=== PATIENT | female | born 1960 | race Caucasian/White ===

== ENCOUNTER 2017-05-21 05:48 | Emergency (ER) | payer BC ==
[2017-05-21] MEDS ORDERED: SODIUM CHLORIDE 1,000 ML IV STA (05:56)
--- NOTE | 2017-05-21 05:56 | PDOC ---
History of Present Illness - General Chief Complaint: Pain Stated Complaint: ABDOMINAL PAIN Time Seen by Provider: 05/21/17 05:55 History Source: Patient Exam Limitations: No Limitations - History of Present Illness Travel History: No Initial Comments: 05/21/17 06:10 56-year-old female with no medical history presents to the emergency department complaining of initial 8/10 dull nonradiating intermittent epigastric discomfort 2 hours on a gradual onset while she was sleeping. Patient had one episode of vomiting: Nonbilious/nonbloody and felt better. The pain is now described as 3/10 dull nonradiating intermittent epigastric discomfort. Patient denies any fever, chills, headache, neck painsstiffness, chest pain, shortness of breath, flank pains, urinary symptoms. Last meal: 2100 hrs. Timing/Duration: reports: intermittent Abdominal Pain Onset Location: reports: epigastric Past History - Past Medical History Allergies/Adverse Reactions: Allergies Allergy/AdvReac Type Severity Reaction Status Date / Time iodine Allergy Severe FAINTING Verified 05/21/17 05:51 SHELLFISH Allergy Intermediate Nausea AND Uncoded 05/21/17 05:51 VOMITING Home Medications: Ambulatory Orders Fluoxetine HCl [Prozac] 10 mg PO DAILY 03/21/13 Anemia: No Asthma: No Cancer: No Cardiac Disorders: No CVA: No COPD: No CHF: No Dementia: No Diabetes: No GI Disorders: No Disorders: No HTN: No Hypercholesterolemia: No Liver Disease: No Seizures: No Thyroid Disease: No - Surgical History Abdominal Surgery: Yes Appendectomy: No Cardiac Surgery: No Cholecystectomy: No Lung Surgery: No Neurologic Surgery: No Orthopedic Surgery: No - Suicide/Smoking/Psychosocial Hx Smoking History: Never smoked Have you smoked in the past 12 months: No Hx Alcohol Use: Yes (RARE) Drug/Substance Use Hx: No Substance Use Type: Alcohol Hx Substance Use Treatment: No Review of Systems - Review of Systems Able to Perform ROS?: Yes Comments:: 05/21/17 06:11 CONSTITUTIONAL: Absent: fever, chills, diaphoresis, generalized weakness, malaise, loss of appetite HEENT: Absent: rhinorrhea, nasal congestion, throat pain, throat swelling, difficulty swallowing, mouth swelling, ear pain, eye pain, visual Changes CARDIOVASCULAR: Absent: chest pain, loss of consciousness, palpitations, irregular heart rate, peripheral edema RESPIRATORY: Absent: cough, shortness of breath, dyspnea with exertion, orthopnea, wheezing, stridor, hemoptysis GASTROINTESTINAL: +epigastric pain Absent: abdominal distension, nausea, vomiting, diarrhea, constipation, melena, hematochezia GENITOURINARY: Absent: dysuria, frequency, urgency, hesitancy, hematuria, flank pain, genital pain MUSCULOSKELETAL: Absent: myalgia, arthralgia, joint swelling SKIN: Absent: rash, itching, pallor HEMATOLOGIC/IMMUNOLOGIC: Absent: easy bleeding, easy bruising, lymphadenopathy, frequent infections ENDOCRINE: Absent: unexplained weight gain, unexplained weight loss, heat intolerance, cold intolerance NEUROLOGIC: Absent: headache, focal weakness or paresthesias, dizziness, unsteady gait, seizure, mental status changes, bladder or bowel incontinence PSYCHIATRIC: Absent: anxiety, depression, suicidal or homicidal ideation, hallucinations. Is the patient limited Croatian proficient: No *Physical Exam - Physical Exam Comments: 05/21/17 06:12 GENERAL: Well developed, well nourished. Awake and alert. No acute distress. HEENT: Normocephalic, atraumatic. PERRLA, EOMI. No conjunctival pallor. Sclera are non- icteric. Moist mucous membranes. Oropharynx is clear. NECK: Supple. Full ROM. No JVD. Carotid pulses 2+ and symmetric, without bruits. No thyromegaly. No lymphadenopathy. CARDIOVASCULAR: Regular rate and rhythm. No murmurs, rubs, or gallops. Distal pulses are 2+ and symmetric. PULMONARY: No evidence of respiratory distress. Lungs clear to auscultation bilaterally. No wheezing, rales or rhonchi. ABDOMINAL: Soft. Non-tender. Non-distended. No rebound or guarding. No organomegaly. Normoactive bowel sounds. MUSCULOSKELETAL Normal range of motion at all joints. No bony deformities or tenderness. No CVA tenderness. EXTREMITIES: No cyanosis. No clubbing. No edema. No calf tenderness. SKIN: Warm and dry. Normal capillary refill. No rashes. No jaundice. NEUROLOGICAL: Alert, awake, appropriate. Cranial nerves 2-12 intact. No deficits to light touch and temperature in face, upper extremities and lower extremities. No motor deficits in the in face, upper extremities and lower extremities. Normoreflexic in the upper and lower extremities. Normal speech. Toes are down- going bilaterally. Gait is normal without ataxia. PSYCHIATRIC: Cooperative. Good eye contact. Appropriate mood and affect. ED Treatment Course - LABORATORY CBC & Chemistry Diagram: 05/21/17 05:54 05/21/17 05:54 Progress Note - Progress Note Progress Note: 0654hrs: Pt feels better and wishes to go home. Patient states she would've never came to the emergency department if she felt how she feels now. *DC/Admit/Observation/Transfer Diagnosis at time of Disposition: Gastroenteritis - Discharge Dispostion Disposition: HOME Condition at time of disposition: Stable Admit: No - Referrals Referrals: Pb Betts MD [Primary Care Provider] - Giselle Christensen MD [Staff Physician] - - Patient Instructions Printed Discharge Instructions: DI for Viral Gastroenteritis -- Adult Additional Instructions: Clear diet with slow transition to solid food Follow up with your physician and the [employer] Cooler Operator listed on your discharge. Return to the ER for severe/persistent/worsening symptoms
[2017-05-21 05:59] VITALS: BP 98/66; PULSE 72; TEMP 97.3; BMI 22.3
[2017-05-21 06:05] LABS: BASOPHIL 0.7 % (0-2.0); MCH 28.2 pg (25.7-33.7); MCHC 33.6 g/dl (32.0-36.0); MEAN PLT VOLUME 7.5 fl (7.5-11.1); NEUTROPHILS 58.6 % (42.8-82.8); PLATELET COUNT 273 K/MM3 (134-434); RDW 13.6 % (11.6-15.6); WHITE BLOOD COUNT 6.7 K/mm3 (4.0-10.0)
[2017-05-21] MEDS ORDERED: MAG HYDROX/AL HYDROX/SIMETH 30 ML UNIT-DOSE CUP PO ONE (06:09)
[2017-05-21] MEDS ORDERED: FAMOTIDINE 20 MG/50 ML IVPB 50 ML IVPB ONE ×2 (06:09→06:34)
[2017-05-21 06:12] LABS: URINE APPEARANCE SLCLOUDY; URINE BILIRUBIN NEGATIVE (NEGATIVE); URINE BLOOD NEGATIVE (NEGATIVE); URINE COLOR DKYELLOW; URINE GLUCOSE (UA) NEGATIVE (NEGATIVE); URINE KETONE TRACE (NEGATIVE); URINE NITRITE NEGATIVE (NEGATIVE); URINE PROTEIN NEGATIVE (NEGATIVE); URINE UROBILINOGEN NEGATIVE mg/dL (0.2-1.0)
[2017-05-21 06:26] LABS: ALBUMIN 3.6 g/dl (3.4-5.0); ALK PHOS 74 U/L (45-117); AMYLASE 69 U/L (25-115); ANION GAP 9 (8-16); BILIRUBIN,TOTAL 0.3 mg/dL (0.2-1.0); CALCIUM 9.1 mg/dL (8.5-10.1); CO2 24 mmol/L (21-32); GLUCOSE,RANDOM 174 mg/dL (74-106); SGOT/AST 21 U/L (15-37); SGPT/ALT 23 U/L (12-78); TOT PROT 6.5 g/dl (6.4-8.2)
[2017-05-21] MEDS ORDERED: MAG HYDROX/AL HYDROX/SIMETH 30 ML UNIT-DOSE CUP ONE (06:34)
[2017-05-21 10:40] LABS: URINE LEUK ESTERASE Negative (NEGATIVE)
== END 2017-05-21 07:29 | disposition home or self-care (01) ==
LOC: JER 05:48
PROC: 3E033GC Introduction of Other Therapeutic Substance into Peripheral Vein, Percutaneous Approach (ICD-10-PCS; principal; 2017-05-21)
PROC: 3E0337Z Introduction of Electrolytic and Water Balance Substance into Peripheral Vein, Percutaneous Approach (ICD-10-PCS; 2017-05-21)
DX: K52.9 Noninfective gastroenteritis and colitis, unspecified (principal)
CPT/HCPCS: 36415; 80053; 81003; 82150; 83690; 85025; 99282-25

== ENCOUNTER 2017-06-05 15:05 | Inpatient (IN) | payer SELFPAY ==
[2017-06-05] MEDS ORDERED: MAG HYDROX/AL HYDROX/SIMETH 30 ML UNIT-DOSE CUP PO ONE (16:15)
[2017-06-05] MEDS ORDERED: SODIUM CHLORIDE 1,000 ML IV STA (16:15)
[2017-06-05] MEDS ORDERED: PANTOPRAZOLE SODIUM 40 MG in SODIUM CHLORIDE 100 ML IVPB ONE (16:15)
[2017-06-05] MEDS ORDERED: MAG HYDROX/AL HYDROX/SIMETH 30 ML UNIT-DOSE CUP ONE (16:50)
[2017-06-05] MEDS ORDERED: PANTOPRAZOLE SODIUM 100 ML IVPB ONE (16:50)
[2017-06-05 17:01] LABS: BASOPHIL 0.3 % (0-2.0); EOSINOPHIL 0.1 % (0-4.5); MCH 28.4 pg (25.7-33.7); MCHC 33.7 g/dl (32.0-36.0); MEAN CELL VOLUME 84.3 fl (80-96); MEAN PLT VOLUME 7.6 fl (7.5-11.1); PLATELET COUNT 290 K/MM3 (134-434); RDW 13.3 % (11.6-15.6); WHITE BLOOD COUNT 10.6 K/mm3 (4.0-10.0)
--- NOTE | 2017-06-05 17:08 | PDOC ---
History of Present Illness <Tonya Berger - Last Filed: 06/05/17 18:52> - History of Present Illness Initial Comments: 06/05/17 17:03 "56 y/o F with a PMHx of anxiety presents to the ED with epigastric pain today. She reports the pain is a constant, dull pain and rates it an 8/10. There is no association with food. She reports associated nausea earlier but no vomiting, no diarrhea. Patient was seen in ED about two weeks ago with similar symptoms. She had normal blood tests and resolution of her pain with GI cocktail. She has a GI appointment tomorrow at [facility]. Denies vomiting, diarrhea. Denies fever, chills. Denies chest pain, SOB. " <Gabe Parrish - Last Filed: 06/05/17 20:02> - General Chief Complaint: Pain, Acute Stated Complaint: ABD PAIN Time Seen by Provider: 06/05/17 15:46 Past History <Tonya Berger - Last Filed: 06/05/17 18:52> - Past Medical History Anemia: No Asthma: No Cancer: No Cardiac Disorders: No CVA: No COPD: No CHF: No Dementia: No Diabetes: No GI Disorders: No Disorders: No HTN: No Hypercholesterolemia: No Liver Disease: No Psychiatric Problems: Yes (depression/anxiety) Seizures: No Thyroid Disease: No - Surgical History Abdominal Surgery: Yes (cysrt removed from ovary) Appendectomy: No Cardiac Surgery: No Cholecystectomy: No Lung Surgery: No Neurologic Surgery: No Orthopedic Surgery: No - Suicide/Smoking/Psychosocial Hx Smoking History: Never smoked Have you smoked in the past 12 months: No Hx Alcohol Use: Yes (occasionally) Drug/Substance Use Hx: No Substance Use Type: Alcohol Hx Substance Use Treatment: No <Gabe Parrish - Last Filed: 06/05/17 20:02> - Past Medical History Allergies/Adverse Reactions: Allergies Allergy/AdvReac Type Severity Reaction Status Date / Time iodine Allergy Severe FAINTING Verified 06/05/17 15:11 SHELLFISH Allergy Intermediate Nausea AND Uncoded 06/05/17 15:11 VOMITING Home Medications: Ambulatory Orders Fluoxetine HCl [Prozac] 10 mg PO DAILY 03/21/13 Review of Systems - Review of Systems Comments:: 06/05/17 17:07 "GENERAL/CONSTITUTIONAL: No fever or chills. No weakness. HEAD, EYES, EARS, NOSE AND THROAT: No change in vision. No ear pain or discharge. No sore throat. CARDIOVASCULAR: No chest pain or shortness of breath. RESPIRATORY: No cough, wheezing, or hemoptysis. GASTROINTESTINAL: (+) epigastric pain, nausea. No vomiting, diarrhea. GENITOURINARY: No dysuria, frequency, or change in urination. MUSCULOSKELETAL: No joint or muscle swelling or pain. No neck or back pain. SKIN: No rash NEUROLOGIC: No headache, vertigo, loss of consciousness, or change in strength/ sensation. ENDOCRINE: No increased thirst. No abnormal weight change. HEMATOLOGIC/LYMPHATIC: No anemia, easy bleeding, or history of blood clots. ALLERGIC/IMMUNOLOGIC: No hives or skin allergy." <Gabe Parrish - Last Filed: 06/05/17 20:02> *Physical Exam - Vital Signs Last Vital Signs Temp Pulse Resp BP Pulse Ox 97.9 F 79 16 111/74 100 06/05/17 15:09 06/05/17 15:09 06/05/17 15:09 06/05/17 15:09 06/05/17 15:09 <Tonya Berger - Last Filed: 06/05/17 18:52> - Vital Signs Last Vital Signs Temp Pulse Resp BP Pulse Ox 97.9 F 79 16 111/74 100 06/05/17 15:09 06/05/17 15:09 06/05/17 15:09 06/05/17 15:09 06/05/17 15:09 - Physical Exam Comments: 06/05/17 17:08 "GENERAL: Awake, alert, and fully oriented, in no acute distress HEAD: No signs of trauma EYES: PERRLA, EOMI, sclera anicteric, conjunctiva clear ENT: Auricles normal inspection, hearing grossly normal, nares patent, oropharynx clear without exudates. Moist mucosa NECK: Nontender, no stepoffs, Normal ROM, supple, no lymphadenopathy, JVD, or masses LUNGS: Breath sounds equal, clear to auscultation bilaterally. No wheezes, and no crackles HEART: Regular rate and rhythm, normal S1 and S2, no murmurs, rubs or gallops ABDOMEN: Soft, MILD epigastric TTP, negative brewster's, no lower quadrant tenderness, normoactive bowel sounds. No guarding, no rebound. No masses EXTREMITIES: Normal range of motion, no edema. No clubbing or cyanosis. No cords, erythema, or tenderness NEUROLOGICAL: Cranial nerves II through XII intact. 5/5 strength and sensation in all extremities, Normal speech, normal gait SKIN: Warm, Dry, normal turgor, no rashes or lesions noted. " <FrancoisGabe - Last Filed: 06/05/17 20:02> ED Treatment Course - LABORATORY CBC & Chemistry Diagram: 06/05/17 16:50 06/05/17 16:50 - ADDITIONAL ORDERS Additional order review: Laboratory Results 06/05/17 06/05/17 17:00 16:50 Sodium 140 Potassium 3.9 Chloride 105 Carbon Dioxide 28 Anion Gap 7 L BUN 13 Creatinine 0.8 Creat Clearance w eGFR > 60 Random Glucose 116 H D Calcium 9.1 Total Bilirubin 0.9 D AST 138 H D ALT 97 H D Alkaline Phosphatase 101 D Total Protein 6.7 Albumin 3.8 Lipase 248 Urine Color Yellow Urine Appearance Clear Urine pH 5.0 Urine Protein Negative Urine Glucose (UA) Negative Urine Ketones Negative Urine Blood Negative Urine Nitrite Negative Urine Bilirubin Negative Urine Urobilinogen 2.0 H 06/05/17 16:50 RBC 4.54 MCV 84.3 MCHC 33.7 RDW 13.3 MPV 7.6 Neutrophils % 79.0 D Lymphocytes % 14.4 D Monocytes % 6.2 Eosinophils % 0.1 D Basophils % 0.3 - Medications Given in the ED: ED Medications Discontinued Medications Generic Name Dose Route Start Last Admin Trade Name Paramjitq PRN Reason Stop Dose Admin Al Hydroxide/Mg Hydroxide 30 ml 06/05/17 16:15 06/05/17 17:07 Mylanta Oral Suspension - PO 06/05/17 16:16 30 ml ONCE ONE Administration Pantoprazole Sodium 40 mg/ 100 mls @ 200 mls/hr 06/05/17 16:15 06/05/17 17:07 Sodium Chloride IVPB 06/05/17 16:44 200 mls/hr ONCE ONE Administration Sodium Chloride 1,000 mls @ 1,000 mls/hr 06/05/17 16:15 06/05/17 17:07 Normal Saline - IV 06/05/17 17:14 1,000 mls/hr ASDIR STA Administration <Tonya Berger - Last Filed: 06/05/17 18:52> - LABORATORY CBC & Chemistry Diagram: 06/05/17 16:50 06/05/17 16:50 <Gabe Parrish - Last Filed: 06/05/17 20:02> Medical Decision Making - Medical Decision Making 06/05/17 17:08 56 F with epigastric pain. Likely gastritis vs PUD. US to r/o adal. Pt with no CP/SOB to suggest ACS. - Labs, lipase - RUQ sono - IVF, GI cocktail 06/05/17 20:00 RUQ US shows possible acute cholecystitis. Dr. Castro, surgeon senior consumer insights consultant, notified. Pt to be NPO tonight for surgical eval in AM. Pt started on cefoxitin. To be admitted to Dr. Hoff. <Gabe Parrish - Last Filed: 06/05/17 20:02> *DC/Admit/Observation/Transfer - Attestations Scribe Attestion: 06/05/17 18:52 Documentation prepared by Tonya Berger, acting as medical appointment scheduler for Gabe Parrish MD. <Tonya eBrger - Last Filed: 06/05/17 18:52> - Discharge Dispostion Admit: Yes - Attestations Physician Attestion: 06/05/17 20:02 I, Dr. Gabe Parrish MD, attest that this document has been prepared under my direction and personally reviewed by me in its entirety. I further attest, that it accurately reflects all work, treatment, procedures and medical decision -making performed by me. <Gabe Parrish - Last Filed: 06/05/17 20:02> Diagnosis at time of Disposition: Cholecystitis - Referrals Referrals: Ирина Brown MD [Primary Care Provider] -
[2017-06-05 17:29] LABS: URINE APPEARANCE CLEAR; URINE BILIRUBIN NEGATIVE (NEGATIVE); URINE BLOOD NEGATIVE (NEGATIVE); URINE COLOR YELLOW; URINE GLUCOSE (UA) NEGATIVE (NEGATIVE); URINE KETONE NEGATIVE (NEGATIVE); URINE NITRITE NEGATIVE (NEGATIVE); URINE PROTEIN NEGATIVE (NEGATIVE)
[2017-06-05 17:45] LABS: ALBUMIN 3.8 g/dl (3.4-5.0); ANION GAP 7 (8-16); CALCIUM 9.1 mg/dL (8.5-10.1); CO2 28 mmol/L (21-32); GLUCOSE,RANDOM 116 mg/dL (74-106)
[2017-06-05 17:50] LABS: ALK PHOS 101 U/L (45-117); BILIRUBIN,TOTAL 0.9 mg/dL (0.2-1.0); CREATININE 0.8 mg/dL (0.55-1.02); SGOT/AST 138 U/L (15-37); SGPT/ALT 97 U/L (12-78); TOT PROT 6.7 g/dl (6.4-8.2)
[2017-06-05] MEDS ORDERED: cefOXitin SODIUM 2 GM VIAL (RESTRICTED TO ID) IVPB ONE (19:36)
[2017-06-05] MEDS ORDERED: SODIUM CHLORIDE 1,000 ML IV SCH (19:45)
[2017-06-05 21:11] LABS: URINE LEUK ESTERASE Negative (NEGATIVE)
--- NOTE | 2017-06-05 21:41 | HP ---
Admitting History and Physical - Primary Care Physician PCP: Holland Hoff - Admission Chief Complaint: abdominal pain History of Present Illness: "56 y/o F with a PMHx of anxiety presents to the ED with epigastric pain today. She reports the pain is a constant, dull pain and rates it an 8/10. There is no association with food, associated nausea earlier but no vomiting, no diarrhea. Patient was seen in ED about two weeks ago with similar symptoms. She had normal blood tests and resolution of her pain with GI cocktail. She has a GI appointment tomorrow at [facility]. " - Past Medical History ...LMP: 02/23/11 - Smoking History Smoking history: Never smoked Have you smoked in the past 12 months: No - Alcohol/Substance Use Hx Alcohol Use: Yes (occasionally) Home Medications - Allergies Allergies/Adverse Reactions: Allergies Allergy/AdvReac Type Severity Reaction Status Date / Time iodine Allergy Severe FAINTING Verified 06/05/17 15:11 SHELLFISH Allergy Intermediate Nausea AND Uncoded 06/05/17 15:11 VOMITING - Home Medications Home Medications: Ambulatory Orders Fluoxetine HCl [Prozac] 10 mg PO DAILY 03/21/13 Physical Examination Vital Signs: Vital Signs Temperature 98.8 F 06/05/17 21:34 Pulse Rate 80 06/05/17 21:34 Respiratory Rate 18 06/05/17 21:34 Blood Pressure 116/76 06/05/17 21:34 O2 Sat by Pulse Oximetry (%) 97 06/05/17 21:34 Constitutional: Yes: No Distress HENT: Yes: Atraumatic Neck: Yes: Supple Cardiovascular: Yes: Regular Rate and Rhythm Respiratory: Yes: CTA Bilaterally Gastrointestinal: Yes: Normal Bowel Sounds Extremities: Yes: WNL Neurological: Yes: Alert, Oriented Problem List - Problems (1) Cholecystitis Assessment/Plan: npo ivf iv abx surgery consult Code(s): K81.9 - CHOLECYSTITIS, UNSPECIFIED Assessment/Plan Laboratory Results - last 24 hr 06/05/17 06/05/17 06/05/17 16:19 16:50 16:50 WBC 10.6 H D RBC 4.54 Hgb 12.9 Hct 38.3 MCV 84.3 MCH 28.4 MCHC 33.7 RDW 13.3 Plt Count 290 MPV 7.6 Neutrophils % 79.0 D Lymphocytes % 14.4 D Monocytes % 6.2 Eosinophils % 0.1 D Basophils % 0.3 Sodium 140 Potassium 3.9 Chloride 105 Carbon Dioxide 28 Anion Gap 7 L BUN 13 Creatinine 0.8 Creat Clearance w eGFR > 60 Random Glucose 116 H D Calcium 9.1 Total Bilirubin 0.9 D AST 138 H D ALT 97 H D Alkaline Phosphatase 101 D Total Protein 6.7 Albumin 3.8 Total Amylase 66 Lipase 248 Urine Color Urine Appearance Urine pH Ur Specific [place] Urine Protein Urine Glucose (UA) Urine Ketones Urine Blood Urine Nitrite Urine Bilirubin Urine Urobilinogen Ur Leukocyte Esterase 06/05/17 17:00 WBC RBC Hgb Hct MCV MCH MCHC RDW Plt Count MPV Neutrophils % Lymphocytes % Monocytes % Eosinophils % Basophils % Sodium Potassium Chloride Carbon Dioxide Anion Gap BUN Creatinine Creat Clearance w eGFR Random Glucose Calcium Total Bilirubin AST ALT Alkaline Phosphatase Total Protein Albumin Total Amylase Lipase Urine Color Yellow Urine Appearance Clear Urine pH 5.0 Ur Specific [place] 1.025 Urine Protein Negative Urine Glucose (UA) Negative Urine Ketones Negative Urine Blood Negative Urine Nitrite Negative Urine Bilirubin Negative Urine Urobilinogen 2.0 H Ur Leukocyte Esterase Negative Active Medications Generic Name Dose Route Start Last Admin Trade Name Freq PRN Reason Stop Dose Admin Sodium Chloride 1,000 mls @ 125 mls/hr 06/05/17 19:45 06/05/17 20:16 Normal Saline - IV 125 mls/hr ASDIR REBECCA Administration Ceftriaxone Sodium 1 gm/ 100 mls @ 200 mls/hr 06/06/17 10:00 Dextrose IVPB 06/06/17 11:59 DAILY REBECCA Sodium Chloride 1,000 mls @ 75 mls/hr 06/05/17 21:45 Normal Saline - IV ASDIR REBECCA
[2017-06-05] MEDS: SODIUM CHLORIDE 1,000 ML IV SCH (22:10)
[2017-06-05] MEDS ORDERED: ACETAMINOPHEN 325 MG TABLET (FP) PO PRN (23:32)
[2017-06-05 23:45] VITALS: BMI 23.5
[2017-06-05] MEDS: HYDROmorphone HCL CARPU-JECT 1 MG/1 ML DISP.SYRIN IVPB PRN (23:52)
[2017-06-06] MEDS ORDERED: CEFOXITIN SODIUM 1 GM in DEXTROSE 5%-WATER - 100 ML IVPB ONE (05:30)
[2017-06-06] MEDS: SODIUM CHLORIDE 1,000 ML IV SCH (05:39)
[2017-06-06 07:47] LABS: BASOPHIL 0.6 % (0-2.0); EOSINOPHIL 0.7 % (0-4.5); MCH 28.3 pg (25.7-33.7); MCHC 33.8 g/dl (32.0-36.0); MEAN CELL VOLUME 83.6 fl (80-96); MEAN PLT VOLUME 7.7 fl (7.5-11.1); NEUTROPHILS 68.5 % (42.8-82.8); PLATELET COUNT 251 K/MM3 (134-434); RDW 13.3 % (11.6-15.6); WHITE BLOOD COUNT 7.8 K/mm3 (4.0-10.0)
[2017-06-06 08:07] LABS: INR 1.04 (0.82-1.09); PROTHROMBIN TIME (PATIENT) 11.7 SEC (9.98-11.88)
[2017-06-06 08:22] LABS: ALBUMIN 3.3 g/dl (3.4-5.0); ALK PHOS 114 U/L (45-117); ANION GAP 10 (8-16); CALCIUM 8.3 mg/dL (8.5-10.1); CO2 23 mmol/L (21-32); CREATININE 1.1 mg/dL (0.55-1.02); GLUCOSE,RANDOM 113 mg/dL (74-106); SGOT/AST 221 U/L (15-37); SGPT/ALT 282 U/L (12-78); TOT PROT 5.8 g/dl (6.4-8.2)
[2017-06-06] MEDS ORDERED: LACTATED RINGERS SOLUTION 1,000 ML IV STA (08:57)
--- NOTE | 2017-06-06 09:07 | CONSULT ---
Consult Consult Specialty:: General Surgery Referred by:: Dr. Parrish Reason for Consultation:: probable cholecystitis - History of Present Illness Chief Complaint: epigastric pain History of Present Illness: 56yo generally healthy F on Prozac every other day began experiencing epigastric pain about two weeks ago associated with N/V then, and was seen in ER with normal labs. Her pain subsided after a GI cocktail, and she was discharged with plan for GI followup. She had a negative colonoscopy when she turned 48. The pain returned yesterday midday/after breakfast of scrambled eggs and toast, associated with nausea but no vomiting, and she came back to ER. She was afebrile, wbc 10.6, LFTs slightly elevated, lipase/amylase normal, and US showed multiple gallstones with gallbladder wall thickening but no fluid around it, cbd 4-5mm. She was admitted to medicine and surgery consulted for cholecystitis. Antibiotics were started (Cefoxitin) in ER last night and repeated early this morning. Her pain has been better after pain medication last night. She is not particularly hungry. This morning's labs show slightly increased LFTs but decreased WBC. - History Source History Provided By: Patient Limitations to Obtaining History: No Limitations - Past Medical History Cardio/Vascular: Yes: Murmur Reproductive: Yes: Endometriosis, Postmenopausal (10 yrs) ...LMP: 02/23/11 ...: No ...: 2 ...Para: 2 Psych: Yes: Anxiety - Past Surgical History Past Surgical History: Yes: (x1), Tonsillectomy Additional Surgical History: laparoscopic ovarian cystectomy and endometriosis removal; hysterosalpingogram (allergic to dye) - Alcohol/Substance Use Hx Alcohol Use: Yes (occasionally) History of Substance Use: reports: None - Smoking History Smoking history: Never smoked Have you smoked in the past 12 months: No - Social History Usual Living Arrangement: With Spouse ADL: Independent Home Medications - Allergies Allergies/Adverse Reactions: Allergies Allergy/AdvReac Type Severity Reaction Status Date / Time iodine Allergy Severe FAINTING Verified 06/05/17 15:11 SHELLFISH Allergy Intermediate Nausea AND Uncoded 06/05/17 15:11 VOMITING - Home Medications Home Medications: Ambulatory Orders Fluoxetine HCl [Prozac] 10 mg PO Q2D 03/21/13 Family Disease History - Family Disease History Family Disease History: Other: Mother (gallstones and cholecystectomy) Other Family History: von Willebrand's - she was tested and is negative Review of Systems - Review of Systems Constitutional: denies: Chills, Fever Eyes: denies: Blurred Vision, Recent Change in Vision HENT: denies: Difficult Swallowing, Hearing Loss, Nasal Congestion, Throat Pain Neck: denies: Swollen Glands, Tenderness Cardiovascular: denies: Chest Pain, Palpitations Respiratory: denies: Cough, SOB Gastrointestinal: reports: Abdominal Pain (with hpi and 2 wks ago), Constipation (recent harder stools), Nausea (with hpi and 2 wks ago), Vomiting ( 2 wks ago but not recently). denies: Diarrhea Genitourinary: denies: Burning, Dysuria, Frequency, Urgency, Vaginal Bleeding Musculoskeletal: denies: Back Pain, Joint Pain, Muscle Pain Integumentary: denies: Change in Color, Rash Neurological: reports: Headache (occasional). denies: Dizziness Hematology/Lymphatic: reports: Excessive Bleeding (with endometriosis surgery only (not others)) Psychiatric: reports: Anxiety. denies: Depression Physical Exam Vital Signs: Vital Signs Temperature 98.5 F 06/06/17 06:15 Pulse Rate 74 06/06/17 06:15 Respiratory Rate 20 06/06/17 06:15 Blood Pressure 122/72 06/06/17 06:15 O2 Sat by Pulse Oximetry (%) 98 06/05/17 22:57 Constitutional: Yes: Well Nourished, No Distress, Calm Eyes: Yes: Conjunctiva Clear, EOM Intact. No: Sclera Icterus HENT: Yes: Atraumatic, Normocephalic Neck: Yes: Supple, Trachea Midline Cardiovascular: Yes: Regular Rate and Rhythm, Murmur Respiratory: Yes: Regular, CTA Bilaterally Gastrointestinal: Yes: Normal Bowel Sounds, Soft, Hernia (small umbilical palpable), Tenderness (mild RUQ and epigastric, less RLQ, no R/G), Tenderness, Epigastrium. No: Distention, Tenderness, Rebound ...Rectal Exam: Yes: Deferred Renal/: No: CVA Tenderness - Left, CVA Tenderness - Right Musculoskeletal: No: Back Pain, Joint Swelling Extremities: No: Cool, Cyanosis Integumentary: No: Jaundice, Rash Neurological: Yes: Alert, Oriented Psychiatric: Yes: Alert, Oriented Labs: CBC, BMP 06/06/17 07:25 06/06/17 07:25 CMP Sodium 143 mmol/L (136-145) 06/06/17 07:25 Potassium 4.1 mmol/L (3.5-5.1) 06/06/17 07:25 Chloride 110 mmol/L (98-107) H 06/06/17 07:25 Carbon Dioxide 23 mmol/L (21-32) 06/06/17 07:25 Anion Gap 10 (8-16) 06/06/17 07:25 BUN 10 mg/dL (7-18) D 06/06/17 07:25 Creatinine 1.1 mg/dL (0.55-1.02) H D 06/06/17 07:25 Creat Clearance w eGFR 51.02 (>60) 06/06/17 07:25 Random Glucose 113 mg/dL (74-106) H 06/06/17 07:25 Calcium 8.3 mg/dL (8.5-10.1) L 06/06/17 07:25 Total Bilirubin 1.0 mg/dL (0.2-1.0) 06/06/17 07:25 AST 221 U/L (15-37) H D 06/06/17 07:25 ALT 282 U/L (12-78) H D 06/06/17 07:25 Alkaline Phosphatase 114 U/L (45-117) 06/06/17 07:25 Total Protein 5.8 g/dl (6.4-8.2) L 06/06/17 07:25 Albumin 3.3 g/dl (3.4-5.0) L 06/06/17 07:25 Total Amylase 66 U/L (25-115) 06/05/17 16:19 Lipase 248 U/L (73-393) 06/05/17 16:50 ALT/AST/alkphos/bili up slightly, wbc down, Cr up Imaging - Results Ultrasound: Report Reviewed (multiple gallstones with thickened gb wall, no pericholecystic fluid, cbd 4-5mm, + Stafford's), Image Reviewed Problem List - Problems (1) Calculus of gallbladder with acute cholecystitis without obstruction Assessment/Plan: admitted to medicine NPO/IVF - Cr up will give bolus and increase fluids IV antibiotics started (Cefoxitin) may need ID approval to continue through postop wbc down but LFTs up a little this morning consider MRCP to r/o ductal stone GI/DVT prophylaxis Discussed with patient and risks, benefits and alternatives of laparoscopic possible open cholecystectomy with possible umbilical hernia repair , including but not limited to bleeding, infection, injury to adjacent structures, bile leak or ductal injury, intraabdominal fluid collection, hernia or recurrence, need for further procedures, ; alternatives include antibiotics, delayed or no surgery - risks of this include failure of nonoperative therapy, cholangitis, pancreatitis, recurrence of cholecystitis, sepsis, . Patient agreeable to operation - will take to OR for above if MRCP is negative. Informed consent signed for same. anticipate resuming po postoperatively plan tylenol/ibuprofen alternating prn for pain after PACU with narcotic available for breakthrough Code(s): K80.00 - CALCULUS OF GALLBLADDER W ACUTE CHOLECYST W/O OBSTRUCTION
[2017-06-06] MEDS: HYDROmorphone HCL CARPU-JECT 1 MG/1 ML DISP.SYRIN IVPB PRN ×2 (09:59→15:11)
[2017-06-06] MEDS ORDERED: CEFTRIAXONE 1 G/50 ML PREMIX 50 ML IVPB SCH (10:00)
[2017-06-06] MEDS: LACTATED RINGERS SOLUTION 1,000 ML IV SCH ×2 (11:44→22:59)
--- NOTE | 2017-06-06 14:56 | CON.ID ---
Consult Consult Specialty:: infectious diseases Referred by:: Reason for Consultation:: probable choleycystitis - History of Present Illness Chief Complaint: abd pain History of Present Illness: 56yo generally healthy F on Prozac admitted for epigastric pain . Patient about two weeks ago associated with N/V then, and was seen in ER with normal labs. Her pain subsided after a GI cocktail, and she was discharged with plan for GI followup. . The pain returned yesterday midday/after breakfast which was associated nausea but no vomiting, and she came back to ER. US showed multiple gallstones with gallbladder wall thickening but no fluid around it, cbd 4-5mm. She was admitted to medicine and surgery consulted for cholecystitis. Antibiotics were started (Cefoxitin) in ER last night and repeated early this morning. her main complaint is headache - History Source History Provided By: Patient Limitations to Obtaining History: No Limitations - Past Medical History Cardio/Vascular: Yes: Murmur ...LMP: 02/23/11 ...: No Psych: Yes: Anxiety - Past Surgical History Past Surgical History: Yes: (x1), Tonsillectomy Additional Surgical History: laparoscopic ovarian cystectomy and endometriosis removal; hysterosalpingogram (allergic to dye) - Alcohol/Substance Use Hx Alcohol Use: Yes (occasionally) History of Substance Use: reports: None - Smoking History Smoking history: Never smoked Have you smoked in the past 12 months: No - Social History Usual Living Arrangement: With Spouse ADL: Independent Home Medications - Allergies Allergies/Adverse Reactions: Allergies Allergy/AdvReac Type Severity Reaction Status Date / Time iodine Allergy Severe FAINTING Verified 06/05/17 15:11 SHELLFISH Allergy Intermediate Nausea AND Uncoded 06/05/17 15:11 VOMITING - Home Medications Home Medications: Ambulatory Orders Fluoxetine HCl [Prozac] 10 mg PO Q2D 03/21/13 Family Disease History - Family Disease History Family Disease History: Other: Mother (gallstones and cholecystectomy) Other Family History: von Willebrand's - she was tested and is negative Review of Systems - Review of Systems Constitutional: reports: No Symptoms Eyes: reports: No Symptoms HENT: reports: No Symptoms Neck: reports: No Symptoms Cardiovascular: reports: No Symptoms Respiratory: reports: No Symptoms Gastrointestinal: reports: Abdominal Pain, Nausea Musculoskeletal: reports: No Symptoms Integumentary: reports: No Symptoms Neurological: reports: No Symptoms Endocrine: reports: No Symptoms Hematology/Lymphatic: reports: No Symptoms Psychiatric: reports: No Symptoms Physical Exam Vital Signs: Vital Signs Temperature 98.0 F 06/06/17 14:39 Pulse Rate 75 06/06/17 14:39 Respiratory Rate 16 06/06/17 14:39 Blood Pressure 123/73 06/06/17 14:39 O2 Sat by Pulse Oximetry (%) 98 06/05/17 22:57 Constitutional: Yes: Well Nourished, Calm, Mild Distress Eyes: Yes: Conjunctiva Clear HENT: Yes: Atraumatic, Normocephalic Cardiovascular: Yes: Regular Rate and Rhythm Respiratory: Yes: Regular, CTA Bilaterally Gastrointestinal: Yes: Normal Bowel Sounds, Soft Musculoskeletal: Yes: WNL Extremities: Yes: WNL Neurological: Yes: Alert, Oriented, Other (headache) Psychiatric: Yes: Alert, Oriented Labs: CBC, BMP 06/06/17 07:25 06/06/17 07:25 Imaging - Results Ultrasound: Report Reviewed, Image Reviewed Assessment/Plan Problem List - Problems (1) Calculus of gallbladder with acute cholecystitis without obstruction Code(s): K80.00 - CALCULUS OF GALLBLADDER W ACUTE CHOLECYST W/O OBSTRUCTION depression abd pain and nausea surgery has evaluated the patient plan is to take to the or tomorrow plan will continue abx monitor wbc rest as per primary and surgery
[2017-06-06] MEDS ORDERED: CEFOXITIN SODIUM 1 GM in DEXTROSE 5%-WATER - 100 ML IVPB SCH (15:15)
[2017-06-06] MEDS: ONDANSETRON 4 MG/2 ML VIAL IVPUSH PRN (15:49)
--- NOTE | 2017-06-06 16:15 | PN ---
Progress Note, Physician History of Present Illness: feeling good - Current Medication List Current Medications: Active Medications Acetaminophen (Tylenol -) 650 mg PO Q6H PRN PRN Reason: FEVER OR PAIN Hydromorphone HCl (Dilaudid Injection -) 1 mg IVPB Q3H PRN PRN Reason: PAIN Last Admin: 06/06/17 15:11 Dose: 1 mg Lactated Ringer's (Lactated Ringers Solution) 1,000 mls @ 125 mls/hr IV ASDIR REBECCA Last Admin: 06/06/17 11:44 Dose: 125 mls/hr Cefoxitin Sodium 1 gm/ (Dextrose) 100 mls @ 200 mls/hr IVPB Q8H-IV REBECCA Ondansetron HCl (Zofran Injection) 4 mg IVPUSH Q4H PRN PRN Reason: NAUSEA AND/OR VOMITING Last Admin: 06/06/17 15:49 Dose: 4 mg - Objective Vital Signs: Vital Signs Temperature 98.0 F 06/06/17 14:39 Pulse Rate 75 06/06/17 14:39 Respiratory Rate 16 06/06/17 14:39 Blood Pressure 123/73 06/06/17 14:39 O2 Sat by Pulse Oximetry (%) 98 06/05/17 22:57 Constitutional: Yes: No Distress HENT: Yes: Atraumatic Neck: Yes: Supple Cardiovascular: Yes: Regular Rate and Rhythm Respiratory: Yes: CTA Bilaterally Gastrointestinal: Yes: Normal Bowel Sounds Extremities: Yes: WNL Neurological: Yes: Alert, Oriented Labs: CBC, BMP 06/06/17 07:25 06/06/17 07:25 INR, PTT INR 1.04 (0.82-1.09) 06/06/17 07:25 Problem List - Problems (1) Cholecystitis Assessment/Plan: npo ivf iv abx surgery tomorrow Code(s): K81.9 - CHOLECYSTITIS, UNSPECIFIED
[2017-06-06] MEDS ORDERED: ACETAMINOPHEN 1000 MG/100 ML VIAL (NON FORMULARY) IVPB ONE (17:00)
[2017-06-06] MEDS ORDERED: PT OWN MED DRAWER 7, Y5N ONE (17:14)
[2017-06-06] MEDS: CEFOXITIN SODIUM 1 GM in DEXTROSE 5%-WATER - 100 ML IVPB SCH (17:19)
--- NOTE | 2017-06-06 19:42 | EKG ---
Test Reason : Blood Pressure : / mmHG Vent. Rate : 081 BPM Atrial Rate : 081 BPM P-R Int : 170 ms QRS Dur : 088 ms QT Int : 394 ms P-R-T Axes : 063 023 047 degrees QTc Int : 457 ms NORMAL SINUS RHYTHM POSSIBLE LEFT ATRIAL ENLARGEMENT BORDERLINE ECG WHEN COMPARED WITH ECG OF 24-JAN-1999 21:04, QT HAS LENGTHENED REPEAT EKG IF CLINICALLY INDICATED Confirmed by CHEO MOREIRA MD ([id number]) on 06/06/2017 7:42:50 PM Referred By: Confirmed By:CHEO MOREIRA MD
[2017-06-07] MEDS: CEFOXITIN SODIUM 1 GM in DEXTROSE 5%-WATER - 100 ML IVPB SCH ×3 (01:17→19:57)
[2017-06-07] MEDS: ONDANSETRON 4 MG/2 ML VIAL IVPUSH PRN ×2 (02:25→09:32)
[2017-06-07] MEDS: HYDROmorphone HCL CARPU-JECT 1 MG/1 ML DISP.SYRIN IVPB PRN (02:27)
[2017-06-07 08:09] LABS: BASOPHIL 0.6 % (0-2.0); EOSINOPHIL 0.4 % (0-4.5); MCH 28.4 pg (25.7-33.7); MCHC 33.9 g/dl (32.0-36.0); MEAN CELL VOLUME 83.8 fl (80-96); MEAN PLT VOLUME 7.6 fl (7.5-11.1); NEUTROPHILS 72.9 % (42.8-82.8); PLATELET COUNT 272 K/MM3 (134-434); RDW 13.4 % (11.6-15.6); WHITE BLOOD COUNT 8.7 K/mm3 (4.0-10.0)
[2017-06-07 08:40] LABS: ALBUMIN 3.6 g/dl (3.4-5.0); ALK PHOS 128 U/L (45-117); ANION GAP 9 (8-16); BILIRUBIN,TOTAL 1.1 mg/dL (0.2-1.0); CALCIUM 8.8 mg/dL (8.5-10.1); CO2 25 mmol/L (21-32); CREATININE 0.8 mg/dL (0.55-1.02); GLUCOSE,RANDOM 94 mg/dL (74-106); SGOT/AST 59 U/L (15-37); SGPT/ALT 186 U/L (12-78); TOT PROT 6.5 g/dl (6.4-8.2)
[2017-06-07] MEDS ORDERED: ACETAMINOPHEN 1000 MG/100 ML VIAL (NON FORMULARY) IVPB ONE (08:45)
[2017-06-07] MEDS ORDERED: DEXTROSE 5%-LACTATED RINGERS 1,000 ML IV SCH (10:30)
--- NOTE | 2017-06-07 10:37 | PN ---
Progress Note (short form) - Note Progress Note: Pt seen and examined in bed. Abdominal pain improving, but headache was bad this morning and she had an episode of green emesis with it. IV Tylenol and zofran have helped, but the headache is still there somewhat. No nausea now. No BM yet. Vital Signs Period Temp Pulse Resp BP Sys/Eugene Pulse Ox Last 24 Hr 98.0 F-98.7 F 74-75 16-20 123-137/73-77 98 Intake & Output 06/06/17 06/07/17 06/07/17 23:59 07:59 15:59 Intake Total 2717 850 Balance 2717 850 Intake: IV 2367 750 Normal Saline - 1,000 ml 164 @ 75 mls/hr IV ASDIR REBECCA Rx#:[id number] Lactated Ringers Solution 1000 1,000 ml @ 1000 mls/hr IV ONCE STA Rx#: [id number] Lactated Ringers Solution 1203 750 1,000 ml @ 125 mls/hr IV ASDIR REBECCA Rx#: [id number] IVPB 350 100 Other: # Unmeasured Voids Void 1 PE: abdomen soft, nondistended, minimally to nontender RUQ, mildly tender epigastric and RLQ, no R/G CBCD WBC 8.7 K/mm3 (4.0-10.0) 06/07/17 07:45 RBC 4.24 M/mm3 (3.60-5.2) 06/07/17 07:45 Hgb 12.0 GM/dL (10.7-15.3) 06/07/17 07:45 Hct 35.5 % (32.4-45.2) 06/07/17 07:45 MCV 83.8 fl (80-96) 06/07/17 07:45 MCHC 33.9 g/dl (32.0-36.0) 06/07/17 07:45 RDW 13.4 % (11.6-15.6) 06/07/17 07:45 Plt Count 272 K/MM3 (134-434) 06/07/17 07:45 MPV 7.6 fl (7.5-11.1) 06/07/17 07:45 CMP Sodium 137 mmol/L (136-145) 06/07/17 07:45 Potassium 4.0 mmol/L (3.5-5.1) 06/07/17 07:45 Chloride 103 mmol/L (98-107) 06/07/17 07:45 Carbon Dioxide 25 mmol/L (21-32) 06/07/17 07:45 Anion Gap 9 (8-16) 06/07/17 07:45 BUN 8 mg/dL (7-18) 06/07/17 07:45 Creatinine 0.8 mg/dL (0.55-1.02) D 06/07/17 07:45 Creat Clearance w eGFR > 60 (>60) 06/07/17 07:45 Calcium 8.8 mg/dL (8.5-10.1) 06/07/17 07:45 Total Bilirubin 1.1 mg/dL (0.2-1.0) H 06/07/17 07:45 AST 59 U/L (15-37) H D 06/07/17 07:45 ALT 186 U/L (12-78) H D 06/07/17 07:45 Alkaline Phosphatase 128 U/L (45-117) H 06/07/17 07:45 Total Protein 6.5 g/dl (6.4-8.2) 06/07/17 07:45 Albumin 3.6 g/dl (3.4-5.0) 06/07/17 07:45 AST/ALT down, bili and alk phos minimally up, wbc normal, lipase normal and down MRCP showed no intraductal stones, 3mm pancreatic head cyst, and unclear finding in an upper thoracic vertebrae A/P: acute cholecystitis abdominal tenderness improved headache - will add D5 to fluids now for OR this afternoon for lap possible open cholecystectomy continue antibiotics trend labs postop Problem List - Problems (1) Calculus of gallbladder with acute cholecystitis without obstruction Code(s): K80.00 - CALCULUS OF GALLBLADDER W ACUTE CHOLECYST W/O OBSTRUCTION
[2017-06-07] MEDS ORDERED: BUPIVACAINE HCL/PF 0.5% (5MG/ML) 10 ML VIAL ONE (10:43)
[2017-06-07] MEDS ORDERED: LIDOCAINE HCL 1%, 10 MG/ML (20ML VIAL) ONE (10:43)
[2017-06-07] MEDS ORDERED: DEXTROSE 5%-0.45% SALINE 1,000 ML IV SCH (10:45)
[2017-06-07] MEDS ORDERED: MIDAZOLAM HCL 2 MG/2 ML SINGLE DOSE VIAL ONE (14:36)
[2017-06-07] MEDS ORDERED: ROCURONIUM BROMIDE 50 MG/5 ML VIAL ONE (14:36)
--- NOTE | 2017-06-07 15:14 | PN ---
Progress Note, Physician History of Present Illness: patient in the operating room - Current Medication List Current Medications: Active Medications Acetaminophen (Tylenol -) 650 mg PO Q6H PRN PRN Reason: FEVER OR PAIN Hydromorphone HCl (Dilaudid Injection -) 1 mg IVPB Q3H PRN PRN Reason: PAIN Last Admin: 06/07/17 02:27 Dose: 1 mg Cefoxitin Sodium 1 gm/ (Dextrose) 100 mls @ 200 mls/hr IVPB Q8H-IV REBECCA Last Admin: 06/07/17 09:32 Dose: 200 mls/hr Dextrose/Sodium Chloride (D5-1/2ns -) 1,000 mls @ 100 mls/hr IV ASDIR REBECCA Last Admin: 06/07/17 10:54 Dose: 100 mls/hr Ondansetron HCl (Zofran Injection) 4 mg IVPUSH Q4H PRN PRN Reason: NAUSEA AND/OR VOMITING Last Admin: 06/07/17 09:32 Dose: 4 mg - Objective Vital Signs: Vital Signs Temperature 98.3 F 06/07/17 08:20 Pulse Rate 84 06/07/17 08:20 Respiratory Rate 16 06/07/17 08:20 Blood Pressure 137/83 06/07/17 08:20 O2 Sat by Pulse Oximetry (%) 98 06/06/17 21:00 Labs: CBC, BMP 06/07/17 07:45 06/07/17 07:45 INR, PTT INR 1.04 (0.82-1.09) 06/06/17 07:25
[2017-06-07] MEDS ORDERED: DEXAMETHASONE SOD PHOSPHATE 4 MG/1 ML VIAL ONE ×2 (15:40→16:37)
[2017-06-07] MEDS ORDERED: SCOPOLAMINE HYDROBROMIDE 1 PATCH PATCH.TD72 ONE (15:42)
[2017-06-07] MEDS ORDERED: GLYCOPYRROLATE 0.2 MG/1 ML VIAL ONE (16:37)
[2017-06-07] MEDS ORDERED: NEOSTIGMINE METHYLSULFATE 0.5 MG/ML - 10 ML MDV ONE (16:37)
[2017-06-07] MEDS ORDERED: PROPOFOL 20 ML ONE (16:53)
[2017-06-07] MEDS ORDERED: IBUPROFEN 600 MG TABLET (FP) PO PRN (17:30)
[2017-06-07] MEDS: HYDROmorphone HCL CARPU-JECT 1 MG/1 ML DISP.SYRIN IVPUSH PRN ×4 (17:33→18:20)
[2017-06-07] MEDS ORDERED: HYDROmorphone HCL CARPU-JECT 2 MG/1 ML DISP.SYRIN ONE ×2 (17:34→18:08)
[2017-06-07] MEDS ORDERED: HYDROmorphone HCL CARPU-JECT 1 MG/1 ML DISP.SYRIN IVPB PRN ×2 (17:34→17:44)
--- NOTE | 2017-06-07 17:38 | OP ---
Operative Note - Note: Operative Date: 06/07/17 Pre-Operative Diagnosis: acute cholecystitis, umbilical hernia Operation: laparoscopic cholecystectomy, open umbilical hernia repair Findings: edematous gallbladder, critical view identified; <1cm umbilical hernia used for camera port, closed primarily Post-Operative Diagnosis: Same as Pre-op Surgeon: Dmitry Castro Gang Punch Operator: Adela Pal Anesthesiologist/MAGNETIC LOCATER: Magalie Bain ([facility]) Anesthesia: General Specimens Removed: gallbladder to pathology Estimated Blood Loss (mls): 5 Fluid Volume Replaced (mls): 1,100 (crystalloid) Operative Report Dictated: Yes
[2017-06-07] MEDS ORDERED: PT OWN MED DRAWER 7, Y5N ONE (17:39)
[2017-06-07] MEDS ORDERED: ONDANSETRON 4 MG/2 ML VIAL IVPUSH PRN (17:44)
[2017-06-07] MEDS ORDERED: cefOXitin SODIUM 1 GM VIAL (RESTRICTED TO ID) IVPB ONE (17:50)
--- NOTE | 2017-06-07 18:16 | PN ---
Progress Note, Physician - Current Medication List Current Medications: Active Medications Acetaminophen (Tylenol -) 650 mg PO Q6H PRN PRN Reason: FEVER OR PAIN Hydromorphone HCl (Dilaudid Injection -) 1 mg IVPB Q3H PRN PRN Reason: SEVERE PAIN Cefoxitin Sodium 1 gm/ (Dextrose) 100 mls @ 200 mls/hr IVPB Q8H-IV REBECCA Dextrose/Sodium Chloride (D5-1/2ns -) 1,000 mls @ 100 mls/hr IV ASDIR REBECCA Ibuprofen (Motrin -) 600 mg PO Q6H PRN PRN Reason: PAIN Ondansetron HCl (Zofran Injection) 4 mg IVPUSH Q4H PRN PRN Reason: NAUSEA AND/OR VOMITING - Objective Vital Signs: Vital Signs Temperature 99.5 F 06/07/17 17:14 Pulse Rate 82 06/07/17 18:00 Respiratory Rate 12 06/07/17 18:00 Blood Pressure 132/68 06/07/17 18:00 O2 Sat by Pulse Oximetry (%) 98 06/07/17 18:00 HENT: Yes: Atraumatic Neck: Yes: Supple Cardiovascular: Yes: Regular Rate and Rhythm Respiratory: Yes: CTA Bilaterally Gastrointestinal: Yes: Normal Bowel Sounds, Tenderness (at the surgery site) Extremities: Yes: WNL Neurological: Yes: Alert, Oriented Labs: CBC, BMP 06/07/17 07:45 06/07/17 07:45 INR, PTT INR 1.04 (0.82-1.09) 06/06/17 07:25 Problem List - Problems (1) Cholecystitis Assessment/Plan: on clear liquid diet ivf iv abx s/p surgery Code(s): K81.9 - CHOLECYSTITIS, UNSPECIFIED
[2017-06-07] MEDS: ACETAMINOPHEN 325 MG TABLET (FP) PO PRN (20:20)
[2017-06-07] MEDS: DEXTROSE 5%-0.45% SALINE 1,000 ML IV SCH (20:22)
[2017-06-07] MEDS: IBUPROFEN 600 MG TABLET (FP) PO PRN (22:27)
[2017-06-08] MEDS ORDERED: PT OWN MED DRAWER 7, Y5N ONE ×2 (01:40→09:27)
[2017-06-08] MEDS: CEFOXITIN SODIUM 1 GM in DEXTROSE 5%-WATER - 100 ML IVPB SCH ×2 (01:51→09:38)
[2017-06-08] MEDS: ACETAMINOPHEN 325 MG TABLET (FP) PO PRN ×3 (01:53→17:18)
[2017-06-08] MEDS: IBUPROFEN 600 MG TABLET (FP) PO PRN ×2 (06:06→12:28)
[2017-06-08] MEDS: DEXTROSE 5%-0.45% SALINE 1,000 ML IV SCH (06:08)
[2017-06-08 08:40] LABS: BASOPHIL 0.5 % (0-2.0); EOSINOPHIL 0.1 % (0-4.5); MCH 28.3 pg (25.7-33.7); MCHC 33.8 g/dl (32.0-36.0); MEAN CELL VOLUME 83.6 fl (80-96); MEAN PLT VOLUME 7.9 fl (7.5-11.1); NEUTROPHILS 70.6 % (42.8-82.8); PLATELET COUNT 268 K/MM3 (134-434); RDW 13.1 % (11.6-15.6); WHITE BLOOD COUNT 11.2 K/mm3 (4.0-10.0)
[2017-06-08 08:50] LABS: ALBUMIN 3.5 g/dl (3.4-5.0); ANION GAP 9 (8-16); CALCIUM 8.8 mg/dL (8.5-10.1); CO2 27 mmol/L (21-32); GLUCOSE,RANDOM 101 mg/dL (74-106)
[2017-06-08 08:53] LABS: ALK PHOS 104 U/L (45-117); BILIRUBIN,TOTAL 0.7 mg/dL (0.2-1.0); CREATININE 0.9 mg/dL (0.55-1.02); SGOT/AST 30 U/L (15-37); SGPT/ALT 130 U/L (12-78); TOT PROT 6.2 g/dl (6.4-8.2)
[2017-06-08] MEDS: LACTATED RINGERS SOLUTION 1,000 ML IV SCH (09:35)
--- NOTE | 2017-06-08 11:33 | PN ---
Progress Note, Physician Chief Complaint: RUQ/epigastric pain History of Present Illness: s/p lap adal yesterday feeling better but somewhat bloated, no BM yet no nausea/vomiting, headache just now starting a little tolerating clears pain controlled with tyl/ibu prn voiding and OOB to ambulate - Current Medication List Current Medications: Active Medications Acetaminophen (Tylenol -) 650 mg PO Q6H PRN PRN Reason: FEVER OR PAIN Last Admin: 06/08/17 09:50 Dose: 650 mg Hydromorphone HCl (Dilaudid Injection -) 1 mg IVPB Q3H PRN PRN Reason: SEVERE PAIN Cefoxitin Sodium 1 gm/ (Dextrose) 100 mls @ 200 mls/hr IVPB Q8H-IV REBECCA Last Admin: 06/08/17 09:38 Dose: 200 mls/hr Dextrose/Sodium Chloride (D5-1/2ns -) 1,000 mls @ 100 mls/hr IV ASDIR REBECCA Last Admin: 06/08/17 06:08 Dose: 100 mls/hr Ibuprofen (Motrin -) 600 mg PO Q6H PRN PRN Reason: PAIN Last Admin: 06/08/17 06:06 Dose: 600 mg Ondansetron HCl (Zofran Injection) 4 mg IVPUSH Q4H PRN PRN Reason: NAUSEA AND/OR VOMITING - Objective Vital Signs: Vital Signs Temperature 98.3 F 06/08/17 07:49 Pulse Rate 56 L 06/08/17 07:49 Respiratory Rate 20 06/08/17 07:49 Blood Pressure 112/56 06/08/17 07:49 O2 Sat by Pulse Oximetry (%) 97 06/07/17 21:00 Vital Signs Period Temp Pulse Resp BP Sys/Eugene Pulse Ox Last 24 Hr 97.8 F-99.5 F 56-99 10- 112-152/56-84 96-100 Constitutional: Yes: Well Nourished, No Distress, Calm Cardiovascular: Yes: Regular Rate and Rhythm. No: Murmur Respiratory: Yes: Regular, CTA Bilaterally Gastrointestinal: Yes: Soft, Distention (mild), Hypoactive Bowel Sounds, Tenderness (mild RUQ, incisional, less RLQ, no R/G) Extremities: No: Cool, Cyanosis Edema: No Peripheral Pulses WNL: Yes Integumentary: Yes: Incision (x4 with dermabond). No: Rash Wound/Incision: Yes: Clean/Dry, Well Approximated, Open to air (x4 with dermabond) Neurological: Yes: Alert, Oriented Labs: CBC, BMP 06/08/17 07:00 06/08/17 07:00 CMP Sodium 138 mmol/L (136-145) 06/08/17 07:00 Potassium 3.8 mmol/L (3.5-5.1) 06/08/17 07:00 Chloride 102 mmol/L (98-107) 06/08/17 07:00 Carbon Dioxide 27 mmol/L (21-32) 06/08/17 07:00 Anion Gap 9 (8-16) 06/08/17 07:00 BUN 8 mg/dL (7-18) 06/08/17 07:00 Creatinine 0.9 mg/dL (0.55-1.02) 06/08/17 07:00 Creat Clearance w eGFR > 60 (>60) 06/08/17 07:00 Random Glucose 101 mg/dL (74-106) 06/08/17 07:00 Calcium 8.8 mg/dL (8.5-10.1) 06/08/17 07:00 Total Bilirubin 0.7 mg/dL (0.2-1.0) D 06/08/17 07:00 AST 30 U/L (15-37) D 06/08/17 07:00 ALT 130 U/L (12-78) H D 06/08/17 07:00 Alkaline Phosphatase 104 U/L (45-117) 06/08/17 07:00 Total Protein 6.2 g/dl (6.4-8.2) L 06/08/17 07:00 Albumin 3.5 g/dl (3.4-5.0) 06/08/17 07:00 Total Amylase 66 U/L (25-115) 06/05/17 16:19 Lipase 104 U/L (73-393) 06/08/17 07:00 LFTs all down to normal wbc slt up - not unexpected postop Problem List - Problems (1) Calculus of gallbladder with acute cholecystitis without obstruction Assessment/Plan: POD1 s/p laparoscopic cholecystectomy stop IVF, antibiotics diet advanced to regular encourage OOB/ambulation incentive spirometry ok for d/c later today if tolerating diet without n/v instructions in d/c plan Code(s): K80.00 - CALCULUS OF GALLBLADDER W ACUTE CHOLECYST W/O OBSTRUCTION
[2017-06-08 14:36] VITALS: BP 117/71; PULSE 68; TEMP 98.4
--- NOTE | 2017-06-08 14:51 | PN ---
Progress Note, Physician History of Present Illness: stable abd pain post op feels bloated - Current Medication List Current Medications: Active Medications Acetaminophen (Tylenol -) 650 mg PO Q6H PRN PRN Reason: FEVER OR PAIN Last Admin: 06/08/17 09:50 Dose: 650 mg Ibuprofen (Motrin -) 600 mg PO Q6H PRN PRN Reason: PAIN Last Admin: 06/08/17 12:28 Dose: 600 mg Ondansetron HCl (Zofran Injection) 4 mg IVPUSH Q4H PRN PRN Reason: NAUSEA AND/OR VOMITING - Objective Vital Signs: Vital Signs Temperature 98.4 F 06/08/17 14:33 Pulse Rate 68 06/08/17 14:33 Respiratory Rate 16 06/08/17 14:33 Blood Pressure 117/71 06/08/17 14:33 O2 Sat by Pulse Oximetry (%) 97 06/07/17 21:00 Constitutional: Yes: Calm, Mild Distress Cardiovascular: Yes: Regular Rate and Rhythm Respiratory: Yes: Regular, CTA Bilaterally Gastrointestinal: Yes: Soft, Tenderness Musculoskeletal: Yes: WNL Extremities: Yes: WNL Neurological: Yes: Alert, Oriented Psychiatric: Yes: Alert, Oriented Labs: CBC, BMP 06/08/17 07:00 06/08/17 07:00 INR, PTT INR 1.04 (0.82-1.09) 06/06/17 07:25 Assessment/Plan Problem List - Problems (1) Calculus of gallbladder with acute cholecystitis without obstruction Code(s): K80.00 - CALCULUS OF GALLBLADDER W ACUTE CHOLECYST W/O OBSTRUCTION depression abd pain and nausea plan post op patient stable bloated wbc marginally high off of abx will monitor wbc
[2017-06-08] MEDS ORDERED: SIMETHICONE 80 MG TAB.CHEW (FP) PO PRN (16:23)
--- NOTE | 2017-06-08 16:29 | DS ---
Physical Examination Vital Signs: Vital Signs Temperature 98.4 F 06/08/17 14:33 Pulse Rate 68 06/08/17 14:33 Respiratory Rate 16 06/08/17 14:33 Blood Pressure 117/71 06/08/17 14:33 O2 Sat by Pulse Oximetry (%) 97 06/07/17 21:00 Constitutional: Yes: No Distress HENT: Yes: Atraumatic Neck: Yes: Supple Cardiovascular: Yes: Regular Rate and Rhythm Respiratory: Yes: CTA Bilaterally Gastrointestinal: Yes: Normal Bowel Sounds, Tenderness (at the surgery site) Extremities: Yes: WNL Edema: No Neurological: Yes: Alert, Oriented Labs: CBC, BMP 06/08/17 07:00 06/08/17 07:00 Discharge Summary Reason For Visit: CHOLECYSTITIS Current Active Problems Calculus of gallbladder with acute cholecystitis without obstruction (Acute) Cholecystitis (Acute) Condition: Good - Instructions Diet, Activity, Other Instructions: Postoperative instructions: You had a laparoscopic cholecystectomy on 06/07/[address] Dmitry Castro of [facility]. Activity: Resume your usual activities gradually, but no heavy exertion or lifting more than 10-15 pounds for a few weeks - your body and pain will guide you. Purple glue will fall off by itself. You may shower daily, just pat the incision areas dry. Eat lightly at first, but advance to your usual diet as tolerated. Pain: For pain, you may use and alternate Tylenol (acetaminophen) and/or ibuprofen every 6 hours each as needed; this means that you can take one OR the other at 3-hour intervals. Do not take more than 4000mg of acetaminophen in a day. Take medications as prescribed or indicated on the labeling. Follow-up: Call Dr. Castro's office at [phone] to make your postop appointment (Monday ~2 weeks after surgery). Clinic is held in the [facility] on the first floor of [facility]. Call the office if you have: * increasing pain not responsive to pain medication * fever of 101F or higher * vomiting * unusual or increasing bleeding or drainage from wounds * increasing redness or swelling at wound sites * inability to urinate Also, see your primary medical doctor within 1-2 weeks. Your MRCP showed a tiny cyst in the head of your pancreas and something in an upper thoracic vertebra - findings which may need follow up imaging and can be addressed by your PMD. Referrals: Ирина Brown MD [Primary Care Provider] - mDitry Castro MD [Staff Physician] - Disposition: HOME - Home Medications Comprehensive Discharge Medication List: Ambulatory Orders Fluoxetine HCl [Prozac] 10 mg PO Q2D 03/21/13 Acetaminophen [Tylenol .Regular Strength -] 650 mg PO Q6H PRN #0 tablet Ibuprofen [Motrin -] 600 mg PO Q6H PRN #0 tablet 06/08/17 tolerated food..some bloating dc home d/w surgery...after written in dc papers
[2017-06-08] MEDS ORDERED: BISACODYL 10 MG SUPP.RECT RC PRN (17:01)
--- NOTE | 2017-06-12 10:20 | PATH ---
Surgical Pathology Report Patient Name: YASMIN STERLING Med. Rec. #: [id number] /Age/Gender: 1960 (Age: 56) / F Account: [id number] Location: [facility] MED/SURG Taken: 06/07/2017 Received: 06/08/2017 Reported: 06/12/2017 Physicians: Lo Lao M.D. Specimen(s) Received GALLBLADDER Clinical History Acute cholecystitis and umbilical hernia Final Diagnosis GALLBLADDER, LAPAROSCOPIC CHOLECYSTECTOMY: GALLBLADDER WITH MILD ACUTE AND CHRONIC INFLAMMATION AND CHOLELITHIASIS. ONE BENIGN PERIDUCTAL LYMPH NODE (0/1). Electronically Signed Catherine Bowen M.D. Gross Description Received in formalin, labeled "gallbladder," is a 8.0 x 3.0 x 2.8 cm. gallbladder with a 0.2 cm. in length portion of cystic duct attached. There is a 0.7 cm greatest dimension john-brown periductal lymph node present. The outer surface is john green and varies from smooth to shaggy. The lumen contains green, tenacious bile as well as multiple yellow, spherical choleliths averaging 0.3 cm in greatest dimension. The mucosa is dark green and velvety. The wall of the gallbladder averages 0.1 cm. in thickness. Store Host sections are submitted in one cassette. /06/08/2017 saudi06/08/2017
== END 2017-06-08 18:49 | disposition home or self-care (01) | DRG 263 ==
LOC: JER 15:05 → JERBED 20:02 → J8W 22:07
PROVIDERS: ADMIT Internal Medicine; ATTEND Internal Medicine
PROC: 0FT44ZZ Resection of Gallbladder, Percutaneous Endoscopic Approach (ICD-10-PCS; principal; 2017-06-05)
PROC: 0WQF0ZZ Repair Abdominal Wall, Open Approach (ICD-10-PCS; 2017-06-05)
DX: K81.0 Acute cholecystitis (principal); F32.9 Major depressive disorder, single episode, unspecified; F41.9 Anxiety disorder, unspecified; K42.9 Umbilical hernia without obstruction or gangrene
CPT/HCPCS: 36415; 74181-TC; 76705-TC; 80053; 80074; 81003; 82150; 83690; 85025; 85610; 85730; 86850; 86900; 86901; 88304-TC; 93005; 93010; 94760; 99282-25